=== PATIENT | female | born 1965 | race Caucasian/White ===

== ENCOUNTER 2018-06-08 19:54 | Emergency (ER) ==
[2018-06-08 20:14] VITALS: BP 169/107; TEMP 97.2; BMI 35.6
[2018-06-08] MEDS ORDERED: DECADRON 4 MG/ML SDV IM STA (20:17)
[2018-06-08] MEDS ORDERED: TORADOL IM STA (20:17)
[2018-06-08] MEDS ORDERED: NORCO 7.5-325 PO STA (20:17)
--- NOTE | 2018-06-08 20:42 | CT ---
Exam: CT lumbar spine without contrast History: Right-sided radiculopathy Technique: [address] lumbar spine with multiplanar reformations FINDINGS: Degenerative posterior listhesis of L4 measuring 2 mm. Anterior listhesis of L5 measuring 14 mm secondary to pars interarticularis defects. Normal body height is maintained. No suspicious bony lesions. No immediate paravertebral soft tissue abnormalities. Atherosclerotic calcification o f the aorta. T12-L1: No significant central canal or foraminal stenosis L1-L2: Minor generalized disc bulge and posterior disc osteophyte. Mild anterior sac indentation. Mild bilateral neural foraminal narrowing. L2-L3: No central canal or foraminal stenosis. L3-L4: Generalized disc bulge with mild sac indentation. Mild bilateral foraminal narrowing. L4-L5: Generalized disc bulge does not indent the sac. There is no right and moderate left foramina l narrowing and secondary to facet and endplate changes. L5 S1: Pars interarticularis defects with anterior listhesis of L5. Severe bilateral foraminal sten osis. No significant central canal stenosis. Impression: 1. No acute abnormalities of the lumbar spine 2. 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 Associated severe bilateral f oraminal stenosis at L5 S1. Moderate to severe left foraminal narrowing at L4-5.
--- NOTE | 2018-06-08 21:15 | ED.PDOC ---
General ED Provider: Dr. MAITE JIMENEZ-ER Chief Complaint: Extremity Pain/Injury Stated Complaint: my back hurts and it goes down my leg Time Seen by Physician: 19:55 Mode of Arrival: Walk-In Information Source: Patient Exam Limitations: No limitations Primary Care Provider: MAR FLORENTINO Nursing and Triage Documentation Reviewed and Agree: Yes Does patient meet sepsis criteria?: No System Inflammatory Response Syndrome: Not Applicable Sepsis Protocol: For patient's 13 years and over: Temp is 96.8 and below OR 101 and greater Pulse >90 BPM Resp >20/minute Acutely Altered Mental Status Are patient's symptoms suggestive of a new infection, such as: -Pneumonia -Skin, Soft Tissue -Endocarditis -UTI -Bone, Joint Infection -Implantable Device -Acute Abdominal Infection -Wound Infection -Meningitis -Blood Stream Catheter Infection -Unknown Musculoskeletal Complaint Exam - Back Pain Complaint/Exam Mechanism of Injury: Reports: No known trauma Onset/Duration: several days Symptoms Are: Still present Timing: Constant Initial Severity: Mild Current Severity: Moderate Location: Reports: Discrete Character: Reports: Dull, Aching Aggravating: Reports: Movements, Lifting, Bending, Walking Alleviating: Reports: None Associated Signs and Symptoms: Denies: Swelling, Redness, Bruising, Fever, Weakness, Numbness, Tingling, Abdominal pain, Flank pain, Bladder incontinence, Bowel incontinence, Weight loss, Pain with weight bearing TAD Risk Factors: Reports: None AAA Risk Factors: Reports: None Cauda Equina Risk Factors: Reports: None Epidural Abcess Risk Factors: Reports: None Related Surgical History: Reports: None Focal Tenderness: No Paraspinal Muscle Tenderness: Yes Paraspinal Muscle Spasm: No Scoliosis: No Lordosis: No Kyphosis: No SLR Test: Right Negative, Left Negative Hip Motion Testing Pain: Right Negative, Left Negative Focal Weakness: Present: None Focal Sensory Loss: Present: None Gait: Present: Abnormal Differential Diagnoses: Compressive Cord Syndrome, Herniated Disk Review of Systems - Review Of Systems Constitutional: Reports: No symptoms Eyes: Reports: No symptoms Ears, Nose, Mouth, Throat: Reports: No symptoms Respiratory: Reports: No symptoms Cardiac: Reports: No symptoms GI: Reports: No symptoms : Reports: No symptoms Musculoskeletal: Reports: Back pain Skin: Reports: No symptoms Neurological: Reports: No symptoms Endocrine: Reports: No symptoms Hematologic/Lymphatic: Reports: No symptoms All Other Systems: Reviewed and Negative Past Medical History - Past Medical History Endocrine: Reports: None Cardiovascular: Reports: None Respiratory: Reports: None Hematological: Reports: None Gastrointestinal: Reports: None Genitourinary: Reports: None Neuro/Psych: Reports: None Musculoskeletal: Reports: Back Pain Cancer: Reports: None Last Menstrual Period: 1998 - Surgical History General Surgical History: Reports: Tubal ligation - Family History Family History: Reports: None - Social History Smoking Status: Current every day smoker, Heavy tobacco smoker Hx Substance Use: No Alcohol Screening: None - Immunizations Tetanus Shot up to Date: Yes Physical Exam - Physical Exam Appearance: Well-appearing Pain Distress: Mild Eyes: MILA, EOMI, Conjunctiva clear ENT: Ears normal, Nose normal, Oropharynx normal Neck: Supple Respiratory: Airway patent Cardiovascular: RRR GI/: Soft, Nontender, No masses, Bowel sounds normal, No Organomegaly Musculoskeletal: Limited ROM Skin: Warm, Dry, Normal color Neurological: Sensation intact, Motor intact, Reflexes intact, Cranial nerves intact, Alert, Oriented Psychiatric: Affect appropriate Interpretation - Radiology Interpretation Radiology Interpretation By: Radiologist Radiology Results: Positive Exam Interpreted: CT Scan Re-Evaluation - Re-Evaluation Time of Re-Evaluation: 21:15 Status: Improved Vital Signs Stable: Yes Pain Level: 2 Appearance: NAD Lungs: Clear Skin: Warm and Dry Neuro: Alert and Oriented X3 CV: RRR Critical Care Note - Critical Care Note Total Time (mins): 0 Course - Course Orders, Labs, Meds: Lab Review 06/08/18 20:30 D-Dimer (Manual) 465.04 Orders Category Date Time Status D-DIMER Stat LAB 06/08/18 20:30 Completed Dexamethasone 4 mg/ml Inj [Decadron 4 mg/ml Sdv] MEDS 06/08/18 20:17 Discontinued 8 mg IM ONCE STA Hydrocodone Bit/Acetaminophen [[place] 7.5-325] MEDS 06/08/18 20:17 Discontinued 1 tab PO ONCE STA Ketorolac Tromethamine [Toradol] MEDS 06/08/18 20:17 Discontinued 60 mg IM ONCE STA CT LUMBAR SPINE W/O CONTRAST Stat RADS 06/08/18 20:16 Completed Medications Discontinued Medications Generic Name Dose Route Start Last Admin Trade Name Freq PRN Reason Stop Dose Admin Hydrocodone Bitart/Acetaminophen 1 tab 06/08/18 20:17 06/08/18 20:31 [place] 7.5-325 PO 06/08/18 20:18 1 tab ONCE STA Administration Dexamethasone Sodium Phosphate 8 mg 06/08/18 20:17 06/08/18 20:32 Decadron 4 Mg/Ml Sdv IM 06/08/18 20:18 8 mg ONCE STA Administration Ketorolac Tromethamine 60 mg 06/08/18 20:17 06/08/18 20:34 Toradol IM 06/08/18 20:18 60 mg ONCE STA Administration Vital Signs: Temp Pulse Resp BP Pulse Ox 06/08/18 19:54 97.2 F L 127 H 20 169/107 H 96 Departure - Departure Time of Disposition: 21:15 Disposition: HOME SELF-CARE Discharge Problem: Lumbar spinal stenosis Qualifiers: Neurogenic claudication status: without neurogenic claudication Qualified Code( s): M48.061 - Spinal stenosis, lumbar region without neurogenic claudication Instructions: Lumbar Spinal Stenosis (ED) Condition: Good Pt referred to PMD for follow-up: Yes IPMP verified?: No Additional Instructions: medrol dose pack--norco 7.5mg q 4hrs prn pain #10--f/u with dr florentino ?physical therapy? Allergies/Adverse Reactions: Allergies Penicillins Adverse Reaction (Verified 06/08/18 20:02) Anaphylaxis Home Medications: Ambulatory Orders 1 [No Reported Medications] 06/08/18 Disposition Discussed With: Patient, Family
== END 2018-06-08 21:30 | disposition home or self-care (01) ==
LOC: ED 19:54
DX: M48.061 Spinal stenosis, lumbar region without neurogenic claudication (principal); F17.210 Nicotine dependence, cigarettes, uncomplicated
CPT/HCPCS: 36415; 85379; 96372; 99283

== ENCOUNTER 2018-06-21 17:06 | Emergency (ER) ==
[2018-06-21 17:17] VITALS: BP 171/102; TEMP 99.9; BMI 35.3
--- NOTE | 2018-06-21 17:28 | ED.PDOC ---
General ED Provider: Dr. NIC KIM Chief Complaint: Non-specific Complaint Stated Complaint: stated her face is swollen Time Seen by Physician: 17:17 Mode of Arrival: Walk-In Information Source: Patient Exam Limitations: No limitations Primary Care Provider: MAR WATKINS Nursing and Triage Documentation Reviewed and Agree: Yes Does patient meet sepsis criteria?: Yes If yes, has appropriate treatment been initiated?: No System Inflammatory Response Syndrome: Not Applicable Sepsis Protocol: For patient's 13 years and over: Temp is 96.8 and below OR 101 and greater Pulse >90 BPM Resp >20/minute Acutely Altered Mental Status Are patient's symptoms suggestive of a new infection, such as: -Pneumonia -Skin, Soft Tissue -Endocarditis -UTI -Bone, Joint Infection -Implantable Device -Acute Abdominal Infection -Wound Infection -Meningitis -Blood Stream Catheter Infection -Unknown EENT Complaint Exam - Dental/Oral Complaint/Exam Mechanism of Injury: No known trauma Onset/Duration: woke up with facial edema right sided no pain Symptoms Are: Resolved Initial Severity: Mild Current Severity: None Aggravating: Reports: None Alleviating: Reports: None Associated Signs and Symptoms: Reports: Swelling (see photos) Review of Systems - Review Of Systems Constitutional: Reports: No symptoms Eyes: Reports: No symptoms Ears, Nose, Mouth, Throat: Reports: No symptoms Respiratory: Reports: No symptoms Cardiac: Reports: No symptoms GI: Reports: No symptoms : Reports: No symptoms Musculoskeletal: Reports: No symptoms Skin: Reports: No symptoms Neurological: Reports: No symptoms Endocrine: Reports: No symptoms Hematologic/Lymphatic: Reports: No symptoms All Other Systems: Reviewed and Negative Past Medical History - Past Medical History Previously Healthy: Yes Endocrine: Reports: None Cardiovascular: Reports: None Respiratory: Reports: None Hematological: Reports: None Gastrointestinal: Reports: None Genitourinary: Reports: None Neuro/Psych: Reports: None Musculoskeletal: Reports: Back Pain Cancer: Reports: None Last Menstrual Period: unknown - Surgical History General Surgical History: Reports: Tubal ligation - Family History Family History: Reports: None - Social History Smoking Status: Current every day smoker, Light tobacco smoker Hx Substance Use: No Alcohol Screening: None Physical Exam - Physical Exam Appearance: Well-appearing, No pain distress, Well-nourished Eyes: MILA, EOMI, Conjunctiva clear ENT: Ears normal, Nose normal (dentition is poor), Oropharynx normal Respiratory: Airway patent, Breath sounds clear, Breath sounds equal, Respirations nonlabored Cardiovascular: RRR, Pulses normal, No rub, No murmur GI/: Soft, Nontender, No masses, Bowel sounds normal, No Organomegaly Musculoskeletal: Normal strength, ROM intact, No edema, No calf tenderness Skin: Warm, Dry, Normal color Neurological: Sensation intact, Motor intact, Reflexes intact, Cranial nerves intact, Alert, Oriented Psychiatric: Affect appropriate, Mood appropriate Critical Care Note - Critical Care Note Total Time (mins): 0 Course - Course Vital Signs: Temp Pulse Resp BP Pulse Ox 06/21/18 17:07 99.9 F H 110 H 20 171/102 H 94 L Departure - Departure Time of Disposition: 17:28 Disposition: HOME SELF-CARE Discharge Problem: Edema of face Instructions: Angioedema (ED) Condition: Good Pt referred to PMD for follow-up: Yes IPMP verified?: No Additional Instructions: Please call your Family Physician as soon as possible to schedule a follow-up appointment. Allergies/Adverse Reactions: Allergies Penicillins Adverse Reaction (Verified 06/21/18 17:15) Anaphylaxis Home Medications: Ambulatory Orders 1 [No Reported Medications] 06/08/18 Disposition Discussed With: Patient
== END 2018-06-21 17:43 | disposition home or self-care (01) ==
LOC: ED 17:06
DX: R60.0 Localized edema (principal); F17.210 Nicotine dependence, cigarettes, uncomplicated
CPT/HCPCS: 99282

== ENCOUNTER 2019-02-20 12:56 | Outpatient (CLI) ==
--- NOTE | 2019-02-23 09:33 | MAMMO ---
EXAM: Bilateral digital screening mammogram (2-D and 3-D) History: Screening Findings: MLO and CC views of bilateral breasts demonstrate scattered fibroglandular breast parenchy ma. CAD was reviewed by the radiologist. Tomosynthesis was performed. There are no dominant masses , no suspicious microcalcifications and no architectural distortions Impression: Negative mammogram. Recommend followup routine screening mammography in 1 year. BIRADS 1, negative
== END 2019-02-20 12:57 | disposition home or self-care (01) ==
LOC: RAD 12:56
PROVIDERS: ATTEND Nurse Practitioner Family
DX: Z12.31 Encounter for screening mammogram for malignant neoplasm of breast (principal)